=== PATIENT | male | born 1955 | race African-American/Black ===

== ENCOUNTER 2020-06-03 00:09 | Emergency (ER) | payer OTHER ==
[~2020-06-03] VITALS: Ht 177.8 cm; Wt 113.4 kg
--- NOTE | 2020-06-03 00:09 | NUR ---
PT SALOME MAHAJAN FROM BUS STOP C/O CP HERE IN ER DENIES CP SEEN [facility] NO HX NO MEDS INAPPROP COMMENTS POSSIBLE PSYCH HX
[2020-06-03 00:24] VITALS: BP 112/80
--- NOTE | 2020-06-03 00:29 | Emergency Room Report ---
History of Present Illness General Chief Complaint: Chest Pain Source: Patient Present Illness HPI Is a 65-year-old male with no past medical history. He presents with chief complaint of chest pain. He said that he was admitted to [facility] in [place] 3 weeks ago. He was there for 5 days. He said he was tested positive for Covid initially and then had negative Covid test prior to discharge. Since then he had intermittent chest pain. He was seen at [facility] earlier today. He came in complaint of left-sided chest pain. He was worked up with negative troponin and unremarkable EKG. His D-dimer was elevated. A CT scan of the chest was done there. It was read as atypical left lower lobe infiltrate versus possible filling defect. Dr. Wang prescribed him azithromycin and Xarelto. The ER there actually filled his medication for him. He was at the bus stop and he called 911. He said he was: Has chest pain. Here he denies any pain. He has multiple stories. Denies any fever chills denies any cough. No nausea no vomiting. Nothing made it better. Nothing made it worse. Allergies: Coded Allergies: No Known Allergies (Unverified , 06/03/20) COVID-19 Screening Contact w/high risk pt: No Experienced COVID-19 symptoms?: No COVID-19 Testing performed MASCARA MOLDER: No Patient History Past Medical History: none, see triage record, old chart reviewed Past Surgical History: none Pertinent Family History: none Social History: Denies: smoking Immunizations: other Reviewed Nursing Documentation: PMH: Agreed; PSxH: Agreed Nursing Documentation-PM Past Medical History: No Stated History Review of Systems Eye: Denies: eye pain, blurred vision ENT: Denies: ear pain, nose congestion, throat swelling Respiratory: Denies: cough, shortness of breath Cardiovascular: Reports: chest pain; Denies: palpitations Gastrointestinal: Denies: abdominal pain, diarrhea, nausea, vomiting Musculoskeletal: Denies: back pain, joint pain Skin: Denies: rash Neurological: Denies: headache, numbness Endocrine: Denies: increased thirst, increased urine Hematologic/Lymphatic: Denies: easy bruising All Other Systems: negative except mentioned in HPI Physical Exam Vital Signs Date Time Temp Pulse Resp B/P (MAP) Pulse Ox O2 Delivery O2 Flow Rate FiO2 06/03/20 00:08 98.1 97 16 111/80 (90) 99 Room Air Vitals normal Sp02 EP Interpretation: reviewed, normal General Appearance: well appearing, no apparent distress, alert Head: normocephalic, atraumatic Eyes: bilateral eye PERRL, bilateral eye EOMI ENT: hearing grossly normal, normal pharynx Neck: full range of motion, supple, no meningismus Respiratory: chest non-tender, lungs clear, normal breath sounds Cardiovascular #1: regular rate, rhythm, no murmur Gastrointestinal: normal bowel sounds, non tender, no mass, no organomegaly, no bruit, non-distended Musculoskeletal: back normal, normal range of motion, gait/station normal Psychiatric: mood/affect normal Medical Decision Making Homeless Attestation I, The treating physician, Dr Osei Carias, has assessed and agrees that patient is medically stable for discharge to an outpatient disposition. Diagnostic Impression: Primary Impression: Chest pain Qualified Codes: R07.9 - Chest pain, unspecified ER Course Patient presents with atypical chest pain. I suspect that he has been a place to sleep. His troponin is 0. Also has negative troponin from [place]. CT scan was negative for dissection. There was a questionable filling defect versus infiltrate. He is already on antibiotics and has medication for Xarelto. He has been resting comfortably and vital signs been stable. Will discharge home. EKG Diagnostic Results Troponin ordered: Yes Rate: normal Rhythm: NSR ST Segments: other - NSST changes ASA given to the pt in ED: No Rhythm Strip Diag. Results EP Interpretation: yes Rate: 95 Rhythm: NSR, no PVC's, no ectopy Last Vital Signs Date Time Temp Pulse Resp B/P (MAP) Pulse Ox O2 Delivery O2 Flow Rate FiO2 06/03/20 00:08 98.1 97 16 111/80 (90) 99 Room Air Status: improved Disposition: HOME, SELF-CARE Condition: Stable Patient Instructions: Nonspecific Chest Pain Additional Instructions: Follow up with your doctor in 7 days. Return if symptoms worsen. Osei Carias MD Jun 03, 2020 00:28
--- NOTE | 2020-06-03 01:07 | NUR ---
PT IV STARTED RT HAND 22G LABS DRAWN AND SENT COVID NASAL SWAB SENT ER MD TO EXAM
[2020-06-03 02:00] VITALS: BP 121/79
--- NOTE | 2020-06-03 02:00 | NUR ---
Homeless Discharge: Patient is being discharged from medical care. Awake, alert and oriented x3. After care instructions, including referral to community resources were given. Patient verbalized understanding of After care instructions; at this time patient does not request medications, equipment or placement. Patient refused to disclose location after discharge. All medical devices such as IV and ID band were removed. Patient clothing adequate for weather. Provided with nourishment. Patient ambulated out with all personal belongings with steady gait.
== END 2020-06-03 02:00 | disposition home or self-care (01) ==
LOC: EDBD 00:09 → EMR 00:25
DX: R07.9 Chest pain, unspecified (principal); Z86.19 Personal history of other infectious and parasitic diseases
CPT/HCPCS: 84484; 99283; U0002